=== PATIENT | female | born 1980 | race Caucasian/White ===

== ENCOUNTER 2017-07-14 11:56 | Emergency (ER) | payer OTHER ==
[~2017-07-14] VITALS: Ht 162.6 cm; Wt 78.6 kg
[~2017-07-14 11:56] MED LIST: IBUP1CAP9 PO; MULT-513 PO; POTA20TA16 PO; PRM/3 PO
[2017-07-14 11:59] VITALS: TEMP 36.4; Ht 162.6 cm; Wt 78.6 kg
[2017-07-14 12:41] LABS: PREG INTERNAL NEGATIVE QC NEG CLEAR BACKGROUND; PREG INTERNAL POSITIVE QC POS CONTROL LINE
[2017-07-14 12:42] LABS: URINE APPEARANCE CLEAR (CLEAR); URINE BILIRUBIN NEG (NEG); URINE COLOR YELLOW; URINE EPITHELIAL CELL AUTO >30 /lpf (0-5); URINE NITRITE NEG (NEG); URINE PH 7.5 (4.5-7.5); URINE SPECIFIC GRAVITY 1.019 (1.000-1.030); UROBILINOGEN NEG (NEG); ZZUR CULT IF INDIC CLEAN CATCH NO
[2017-07-14 12:57] LABS: MANUAL MICROSCOPIC REQUIRED? NO; REVIEW REQ? NO
[2017-07-14 13:02] LABS: BASO % 0.4 %; BASO ABS # 0.02 K/uL (0-0.2); COMPLETE YES; EOS % 2.6 %; HEMATOCRIT 37.3 % (37-47); IG% 0.2 %; LYMPH % 47.9 %; LYMPH ABS # 2.57 K/uL (1.2-3.4); MEAN CORPUSCULAR HEMOGLOBIN 30.5 pg (25-34); MEAN CORPUSCULAR HGB CONC 34.3 g/dl (32-36); MEAN PLATELET VOLUME 11.8 fL (7.4-10.4); MONO % 5.6 %; NEUT % 43.3 %; PLATELET COUNT 196 K/uL (130-400); RED BLOOD COUNT 4.19 M/uL (4.2-5.4); WHITE BLOOD COUNT 5.37 K/uL (4.8-10.8)
[2017-07-14 13:10] LABS: BUN/CREATININE RATIO 8.8 (10-20); CALCIUM 8.6 mg/dl (8.5-10.1); CREATININE 0.73 mg/dl (0.60-1.20); POTASSIUM 3.8 mmol/L (3.5-5.1)
[2017-07-14 13:13] LABS: ALB/GLOB RATIO 1.1 (0.9-2)
[2017-07-14] MEDS ORDERED: MECLIZINE HCL 25 MG TAB PO STA (13:13)
[2017-07-14] MEDS ORDERED: SODIUM CHLORIDE 0.9% 1000ML 1,000 ML IV STA (13:13)
[2017-07-14] MEDS ORDERED: ONDANSETRON INJ 2 MG/ML 2 ML VIAL IV STA (13:13)
--- NOTE | 2017-07-14 13:19 | EMERGENCY ROOM VISIT NOTE ---
History First contact with patient: 12:58 Chief Complaint: DIZZY Stated Complaint: DIZZINESS Nursing Triage Summary: pt c/o dizziness since this AM. pt c/o intermittent nausea. pt states increased dizziness when changing positions. History of Present Illness The patient is a 36 year old female who presents to the Emergency Room with complaints of dizziness which began this morning. The patient states that she woke up at 3 AM with a feeling of dizziness. She describes the dizziness as a feeling of the room spinning. She reports symptoms have been constant since it started this morning. They're briskly when she closes her eyes. They worsen when she stands up and walks. She had a headache 2 weeks ago but states this resolved denies pain in her head at this time. She has been eating and drinking normally. She denies history of similar symptoms. She denies neck pain, recent illness, fevers/chills, chest pain, shortness of breath or palpitations. She states she is otherwise healthy. She takes Premarin due to a history of hysterectomy secondary to endometriosis. She denies numbness/ weakness, lightheadedness or syncope. Review of Systems A complete 10 point review of systems was reviewed with the patient with pertinent positives and negatives as per history of present illness. All else were negative. Past Medical/Surgical History Medical Problems: (1) Appendectomy (2) Costochondritis (3) Hysterectomy (4) Oophorectomy Family History Patient reports no known family medical history. Social History Smoking Status: Never Smoker Alcohol Use: occasionally Drug Use: none Marital Status: Occupation Status: employed Current/Historical Medications Scheduled Estrogens, Conjugated (Premarin), 0.3 MG PO HS Multivitamins/Minerals (Mvi With Minerals), 1 TAB PO DAILY Potassium Ext Rel (Klor-Con), 1 TAB PO DAILY Scheduled PRN Lorazepam (Ativan), 1-2 TAB PO TID PRN for Dizziness or Vertigo Allergies Coded Allergies: Adhesives (Verified Allergy, Mild, HIVES, 07/14/17) Physical Exam Vital Signs Date Time Temp Pulse Resp B/P (MAP) Pulse Ox O2 Delivery O2 Flow Rate FiO2 07/14/17 15:23 71 15 118/79 99 Room Air 07/14/17 15:00 76 14 110/83 99 Room Air 07/14/17 13:34 74 17 109/77 95 Room Air 07/14/17 12:30 80 07/14/17 12:25 84 12 119/88 98 Room Air 80 118/85 91 126/91 07/14/17 11:59 36.4 92 18 127/87 97 Room Air Pain Rating (0-10): 0 Physical Exam VITALS: Vitals are noted on the nurse's note and reviewed by myself. Vital signs stable. GENERAL: This is a 36-year-old female, in no acute distress, nondiaphoretic, well-developed well-nourished. HEAD: Normocephalic atraumatic. EARS: External auditory canals clear, tympanic membranes pearly cannon without erythema or effusion bilaterally. EYES: Pupils equal round and reactive to light and accommodation. Conjunctivae without injection, sclerae without icterus. Extraocular movements intact, with a few beats of lateral nystagmus. MOUTH: Mucous membranes moist. Tongue does not deviate. NECK: Supple without nuchal rigidity. No lymphadenopathy. No meningismus. HEART: Regular rate and rhythm without murmurs gallops or rubs. LUNGS: Clear to auscultation bilaterally without wheezes, rales or rhonchi. MUSCULOSKELETAL: Full range of motion throughout. Strength 5/5 throughout. NEURO: Patient was alert and oriented to person place and time. Normal sensation to light and sharp touch. Deep tendon reflexes 2+ throughout. Normal finger to nose testing. Normal rapid alternating movements. Negative Romberg and pronator drift. No focal neurological deficits. Medical Decision & Procedures ER Provider Diagnostic Interpretation: CT SCAN OF THE BRAIN WITHOUT IV CONTRAST FINDINGS: Brain parenchyma: The brain parenchyma is normal in appearance. There is no hemorrhage, mass effect, or evidence of acute territorial ischemia by CT criteria. Cannon-white matter is preserved. No extra-axial fluid collection is seen. Ventricles, sulci, cisterns: Normal in configuration. Intracranial vasculature: The visualized intracranial vasculature at the skull base is normal in appearance. Calvarium: Unremarkable. Sinuses and mastoids: The visualized paranasal sinuses are clear. The mastoid air cells are well pneumatized. Orbits: The bony orbits are grossly intact. IMPRESSION: No acute intracranial abnormality. Laboratory Results 07/14/17 12:35 Red Blood Count 4.19, Mean Corpuscular Volume 89.0, Mean Corpuscular Hemoglobin 30.5, Mean Corpuscular Hemoglobin Concent 34.3, Mean Platelet Volume 11.8, Neutrophils (%) (Auto) 43.3, Lymphocytes (%) (Auto) 47.9, Monocytes (%) (Auto) 5.6, Eosinophils (%) (Auto) 2.6, Basophils (%) (Auto) 0.4, Neutrophils # (Auto) 2.33, Lymphocytes # (Auto) 2.57, Monocytes # (Auto) 0.30, Eosinophils # (Auto) 0.14, Basophils # (Auto) 0.02 07/14/17 12:35 Test 07/14/17 12:26 07/14/17 12:35 Urine Color YELLOW Urine Appearance CLEAR (CLEAR) Urine pH 7.5 (4.5-7.5) Urine Specific [place] 1.019 (1.000-1.030) Urine Protein NEG (NEG) Urine Glucose (UA) NEG (NEG) Urine Ketones NEG (NEG) Urine Occult Blood NEG (NEG) Urine Nitrite NEG (NEG) Urine Bilirubin NEG (NEG) Urine Urobilinogen NEG (NEG) Urine Leukocyte Esterase NEG (NEG) Urine WBC (Auto) 1-5 /hpf (0-5) Urine RBC (Auto) 0-4 /hpf (0-4) Urine Hyaline Casts (Auto) 1-5 /lpf (0-5) Urine Epithelial Cells (Auto) >30 /lpf (0-5) Urine Bacteria (Auto) NEG (NEG) Urine Test NEG (NEG) White Blood Count 5.37 K/uL (4.8-10.8) Red Blood Count 4.19 M/uL (4.2-5.4) Hemoglobin 12.8 g/dL (12.0-16.0) Hematocrit 37.3 % (37-47) Mean Corpuscular Volume 89.0 fL (80-100) Mean Corpuscular Hemoglobin 30.5 pg (25-34) Mean Corpuscular Hemoglobin Concent 34.3 g/dl (32-36) Platelet Count 196 K/uL (130-400) Mean Platelet Volume 11.8 fL (7.4-10.4) Neutrophils (%) (Auto) 43.3 % Lymphocytes (%) (Auto) 47.9 % Monocytes (%) (Auto) 5.6 % Eosinophils (%) (Auto) 2.6 % Basophils (%) (Auto) 0.4 % Neutrophils # (Auto) 2.33 K/uL (1.4-6.5) Lymphocytes # (Auto) 2.57 K/uL (1.2-3.4) Monocytes # (Auto) 0.30 K/uL (0.11-0.59) Eosinophils # (Auto) 0.14 K/uL (0-0.5) Basophils # (Auto) 0.02 K/uL (0-0.2) RDW Standard Deviation 40.0 fL (36.4-46.3) RDW Coefficient of Variation 12.4 % (11.5-14.5) Immature Granulocyte % (Auto) 0.2 % Immature Granulocyte # (Auto) 0.01 K/uL (0.00-0.02) Anion Gap 5.0 mmol/L (3-11) Est Creatinine Clear Calc Drug Dose 108.1 ml/min Estimated GFR () 122.8 Estimated GFR (Non- 106.0 BUN/Creatinine Ratio 8.8 (10-20) Calcium Level 8.6 mg/dl (8.5-10.1) Magnesium Level 2.0 mg/dl (1.8-2.4) Total Bilirubin 0.4 mg/dl (0.2-1) Aspartate Amino Transf (AST/SGOT) 20 U/L (15-37) Alanine Aminotransferase (ALT/SGPT) 30 U/L (12-78) Alkaline Phosphatase 87 U/L (45-117) Total Protein 6.9 gm/dl (6.4-8.2) Albumin 3.6 gm/dl (3.4-5.0) Globulin 3.3 gm/dl (2.5-4.0) Albumin/Globulin Ratio 1.1 (0.9-2) Thyroid Stimulating Hormone (TSH) 1.060 uIu/ml (0.300-4.500) Medications Administered Medications (Trade) Dose Ordered Sig/Maria Guadalupe Route Start Time Stop Time Status Last Admin Dose Admin Sodium Chloride 1,000 ml @ 999 mls/hr Q1H1M STAT IV 07/14/17 13:13 07/14/17 14:13 DC 07/14/17 13:35 999 MLS/HR Ondansetron HCl (Zofran Inj) 4 mg NOW STAT IV 07/14/17 13:13 07/14/17 13:14 DC 07/14/17 13:35 4 MG Meclizine HCl (Antivert Tab) 25 mg NOW STAT PO 07/14/17 13:13 07/14/17 13:14 DC 07/14/17 13:35 25 MG Lorazepam (Ativan Tab) 1 mg NOW STAT SL 07/14/17 14:16 07/14/17 14:17 DC 07/14/17 14:58 1 MG ECG Rate (beats per minute): 79 Rhythm: normal sinus (sinus arrhythmia) Findings: no acute ischemic change, no ectopy Change: no significant change ED Course The patient was evaluated as above. Labs were drawn and IV access was obtained. Patient was medicated with meclizine and Zofran. CT of the head was performed and read by radiology as above. Patient was reevaluated and had no improvement. She was given 1 mg Ativan at this time. Patient was reevaluated and had complete resolution of symptoms. She is requesting discharge home. Discharge instructions were reviewed with the patient. The patient verbalized understanding of my assessment and treatment plan and was discharged home in good condition. Medical Decision Differential diagnosis includes CVA, TIA, infection, BPPV, labyrinthitis, malignancy, orthostatic hypotension, among others. The patient is a 36-year-old female who presents today complaining of dizziness. Labs revealed no leukocytosis, anemia or concerning electrolyte abnormalities. Urinalysis was not suggestive of infection. Urine was negative. EKG showed a normal sinus rhythm with sinus arrhythmia. CT of the head was unremarkable. The patient's neurological exam was normal. Cerebellar exam was normal. The patient had complete resolution of symptoms after receiving Ativan. She was given a small amount of this to be taken at home if the symptoms return. Otherwise, she will follow-up with her primary care provider for further evaluation. Based on the patient's presentation and work up, I feel the patient is stable for outpatient treatment. The patient was educated to return to the emergency department for any worsening of their current condition or new/concerning symptoms. She will follow up with her PCP. The patient's case was reviewed with Dr. Payton, ED attending physician, who agreed with my assessment and treatment plan. Medication reconciliation: I attest that I have personally reviewed the patient 's current medication list. Blood pressure screening: Patient was found to have normal blood pressure on screening and does not require follow-up. Impression Primary Impression: Vertigo Departure Information Dispostion Home / Self-Care Condition GOOD Prescriptions Lorazepam (ATIVAN) 0.5 Mg Tab 1-2 TAB PO TID Y for Dizziness or Vertigo, #9 TAB Prov: Doris Saenz .BUBBA 07/14/17 Referrals Mckenzie Alaniz M.D. (PCP) Patient Instructions My [facility] [place] [facility] Additional Instructions Take the Ativan 1-2 tablets up to 3 times daily as needed for dizziness. Rest and stay well hydrated. No strenuous activity for at least 48 hours. Follow-up with her primary care provider within 2-3 days for further evaluation. Return to the emergency room with intractable dizziness, vomiting, severe headaches or any other new/concerning symptoms.
[2017-07-14 13:52] LABS: THYROID STIMULATING HORMONE 1.06 uIu/ml (0.300-4.500)
--- NOTE | 2017-07-14 14:04 | DIAGNOSTIC IMAGING REPORT ---
CT SCAN OF THE BRAIN WITHOUT IV CONTRAST CLINICAL HISTORY: Dizziness. COMPARISON STUDY: CT of the brain dated 09/27/2016. TECHNIQUE: Unenhanced axial CT scan of the brain is performed from the vertex to the skull base. Automated dose control exposure was utilized. A dose lowering technique was utilized adhering to the principles of ALARA. CT DOSE: 690.05 mGycm FINDINGS: Brain parenchyma: The brain parenchyma is normal in appearance. There is no hemorrhage, mass effect, or evidence of acute territorial ischemia by CT criteria. Cannon-white matter is preserved. No extra-axial fluid collection is seen. Ventricles, sulci, cisterns: Normal in configuration. Intracranial vasculature: The visualized intracranial vasculature at the skull base is normal in appearance. Calvarium: Unremarkable. Sinuses and mastoids: The visualized paranasal sinuses are clear. The mastoid air cells are well pneumatized. Orbits: The bony orbits are grossly intact. IMPRESSION: No acute intracranial abnormality. Electronically signed by: Angel Smith M.D. 07/14/2017 2:03 PM Dictated Date/Time: 07/14/2017 2:01 PM
[2017-07-14] MEDS ORDERED: LORAZEPAM 1 MG TAB SL STA (14:16)
[2017-07-14 15:23] VITALS: BP 118/79; PULSE 71; O2SAT 99
[2017-07-14] MEDS ORDERED: LORA-741 PO (15:47)
== END 2017-07-14 15:51 | disposition home or self-care (01) ==
LOC: C.EDB 11:56 → C.EDC 15:51
DX: R42 Dizziness and giddiness (principal)

== ENCOUNTER 2017-10-24 05:22 | Day surgery (SDC) | payer OTHER ==
[2017-10-07 13:46] VITALS: BMI 29.0
--- NOTE | 2017-10-07 14:18 | PAT Medication Instructions ---
Service Date Oct 07, 2017. Current Home Medication List Estrogens, Conjugated (Premarin), 1.25 MG PO QAM Multivitamins/Minerals (Mvi With Minerals), 1 TAB PO QAM Ondansetron Hcl (Zofran), 4 MG PO UD PRN for Nausea Rizatriptan Benzoate (Maxalt), 10 MG PO UD PRN for Migraine Medication Instructions For Your Scheduled Surgery - Hold the following medications the morning of surgery: Multivitamins/Minerals (Mvi With Minerals), 1 TAB PO QAM - Take the following medications the morning of surgery with a sip of water OTHERWISE NOTHING TO EAT OR DRINK AFTER MIDNIGHT: Estrogens, Conjugated (Premarin), 1.25 MG PO QAM Ondansetron Hcl (Zofran), 4 MG PO UD PRN for Nausea Rizatriptan Benzoate (Maxalt), 10 MG PO UD PRN for Migraine If you have any questions please call us at [phone] or [phone] or [phone]
[2017-10-07 14:29] LABS: BASO % 0.3 %; BASO ABS # 0.02 K/uL (0-0.2); COMPLETE YES; EOS % 2.4 %; HEMATOCRIT 34.4 % (37-47); IG% 0.2 %; LYMPH % 35.3 %; LYMPH ABS # 2.34 K/uL (1.2-3.4); MEAN CELL VOLUME 90.5 fL (80-100); MEAN CORPUSCULAR HEMOGLOBIN 30.3 pg (25-34); MEAN CORPUSCULAR HGB CONC 33.4 g/dl (32-36); MEAN PLATELET VOLUME 11.4 fL (7.4-10.4); MONO % 6.9 %; NEUT % 54.9 %; PLATELET COUNT 236 K/uL (130-400); WHITE BLOOD COUNT 6.63 K/uL (4.8-10.8)
[~2017-10-24] VITALS: Ht 162.6 cm; Wt 77.0 kg
[~2017-10-24 05:22] MED LIST changes: +ESTR1.252 PO; -IBUP1CAP9 PO; +ONDA4TAB46 PO; -POTA20TA16 PO; -PRM/3 PO; +RIZA10TA18 PO
[2017-10-24 05:51] LABS: BASO % 0.5 %; BASO ABS # 0.03 K/uL (0-0.2); EOS % 3.4 %; HEMATOCRIT 37.4 % (37-47); LYMPH % 41.5 %; LYMPH ABS # 2.33 K/uL (1.2-3.4); MEAN CELL VOLUME 91.9 fL (80-100); MEAN CORPUSCULAR HEMOGLOBIN 31.2 pg (25-34); MEAN PLATELET VOLUME 11.5 fL (7.4-10.4); NEUT % 46.6 %; PLATELET COUNT 212 K/uL (130-400); RED BLOOD COUNT 4.07 M/uL (4.2-5.4); WHITE BLOOD COUNT 5.62 K/uL (4.8-10.8)
[2017-10-24] MEDS ORDERED: LACTATED RINGER'S 1000ML 1,000 ML IV SCH ×2 (06:00)
[2017-10-24] MEDS ORDERED: SCOPOLAMINE 1.5 MG TDSY TD SCH (06:00)
[2017-10-24] MEDS ORDERED: CEFAZOLIN 2000MG IV PUSH 10 ML IV SCH (06:00)
[2017-10-24 06:03] VITALS: BP 115/73; PULSE 87; TEMP 36.5; O2SAT 98; Ht 162.6 cm; Wt 77.0 kg
[2017-10-24 06:06] LABS: COMPLETE YES
[2017-10-24] MEDS ORDERED: MIDAZOLAM HCL 1 MG/ML 2ML VIAL ONE (06:35)
[2017-10-24] MEDS ORDERED: FENTANYL CITRATE INJ 50 MCG/1 ML 2 ML VIAL ONE (06:35)
--- NOTE | 2017-10-24 06:43 | History & Physical Bridge Note ---
H&P Re-Evaluation Bridge Note: I have examined the patient, reviewed the History & Physical and in the interval since the performance of the History & Physical I have noted the following changes of clinical significance: No changes noted
[2017-10-24] MEDS ORDERED: BUPIVACAINE 0.5 % 5 MG/1 ML MPF 30ML VIAL ONE (06:49)
[2017-10-24] MEDS ORDERED: HYDROmorphone INJ 2 MG/ML SYR/VIAL ONE (07:35)
[2017-10-24] MEDS ORDERED: SUCCINYLCHOLINE 100MG/5ML SYR IV ONE (07:57)
[2017-10-24] MEDS ORDERED: PROPOFOL IV EMULSION 10 MG/ML 20 ML VIAL IV ONE (07:57)
[2017-10-24] MEDS ORDERED: ONDANSETRON INJ 2 MG/ML 2 ML VIAL ONE ×2 (07:57)
[2017-10-24] MEDS ORDERED: LIDOCAINE HCL 2% 2 ML VIAL (20MG/ML) ONE (07:57)
[2017-10-24] MEDS ORDERED: DEXAMETHASONE SOD INJ 4 MG/ML VIAL ONE (07:57)
[2017-10-24] MEDS ORDERED: OXIDIZED CELLULOSE 1 EA TOP ONE ×2 (07:58→08:02)
[2017-10-24] MEDS ORDERED: GLYCOPYRROLATE INJ 0.2 MG/ML VIAL ONE (08:13)
[2017-10-24] MEDS ORDERED: ROCURONIUM BROMIDE 10 MG/ML 5 ML VIAL IV ONE (08:13)
[2017-10-24] MEDS ORDERED: NEOSTIGMINE METHYLSULFATE 5 MG/5 ML SYR ONE (08:13)
[2017-10-24] MEDS ORDERED: SODIUM CHLORIDE 0.9% 1000ML 1,000 ML IV SCH (08:26)
[2017-10-24] MEDS ORDERED: IBUPROFEN 600 MG TAB PO PRN (08:30)
[2017-10-24] MEDS ORDERED: OXYCODONE/ACETAMINOPHEN 5-325 TAB PO PRN ×2 (08:30)
[2017-10-24] MEDS ORDERED: ONDANSETRON INJ 2 MG/ML 2 ML VIAL IV PRN ×2 (08:30→08:45)
--- NOTE | 2017-10-24 08:31 | [facility] Post Operative Brief Note ---
Immediate Operative Summary Operative Date Oct 24, 2017. Pre-Operative Diagnosis History of Endometresois; history of total hysterectomy with bilateral salpingo-oopherectomy; chronic pelvic pain Post-Operative Diagnosis History of Endometresois; history of total hysterectomy with bilateral salpingo-oopherectomy; chronic pelvic pain, bowel adhesions Procedure(s) Performed Laparoscopy, Lysis of Adhesions, with Peritoneal Biopsy Surgeon Dr. Lashonda العلي Hotel Reservation Agent Surgeon(s) Dr. Charlotte Avalos Estimated Blood Loss 5mL Findings Upon laparoscopic exam the descending and sigmoid colon were adhered to the ipsilateral side wall which were carefully cauterized and lysed. The ascending colon was also lightly adhered to the right side pelvic wall which were also carefully cauterized and lysed. The sites of adhesiolysis were covered with interceed to prevent adhesion reformation. There was white thickening along the right pelvic side wall which could not be determined if it was scar tissue or ovarian remnant tissue therefore a piece of the peritoneum was removed and sent to pathology. Excellent hemostasis was noted at the completion of the procedure. The patient tolerated the surgery well and was sent to recovery with stable vital signs. Fluids (cc crystalloids) 1100 Specimens A: Piece of [place] Drains Luna to [place]otte Anesthesia General Complication(s) None Disposition Recovery Room / PACU
[2017-10-24] MEDS ORDERED: OXYC-57 PO (08:32)
--- NOTE | 2017-10-24 08:34 | Discharge Instructions ---
Discharge Instructions Date of Service Oct 24, 2017. Visit Reason for Visit: Chronic Pelvic Pain, Hx Fernando W/Bso, Endometriosis, Discharge Discharge Diagnosis / Problem: Laparoscopy with lysis of adhesions Discharge Goals Goal(s): Decrease discomfort Activity Recommendations Activity Limitations: per Instructions/Follow-up section Anesthesia . Post Anesthesia Instructions: If you have had General Anesthesia or IV Sedation: * Do not drive today. * Resume driving when surgeon permits. * Do not make important decisions or sign legal documents today. * Call surgeon for: 1. Temperature elevations greater than 101 degrees F. 2. Uncontrollable pain. 3. Excessive bleeding. 4. Persistent nausea and vomiting. 5. Medication intolerance (nausea, vomiting or rash). * For nausea and vomiting use only clear liquids such as: tea, soda, bouillon until nausea subsides, then gradually increase diet as tolerated. * If you have any concerns or questions, call your surgeon's office. If physician is unavailable and it is an emergency, call 911 or go to the nearest emergency room. . Instructions / Follow-Up Instructions / Follow-Up ACTIVITY RECOMMENDATIONS: * Rest the first 2-3 days. You should be back to your normal activity levels by day 3. * No heavy lifting for 2 weeks. * You may shower the next day. * Do not drive anytime that you are taking narcotic pain medicines. RETURN TO SCHOOL/WORK: * May return to school or work after 2-3 days. DIET: Nausea may occur in the immediate post-operative period. If so, take clear liquids such as tea, bouillon, apple juice until all nausea has subsided, then resume usual diet. MEDICATIONS: Resume previous medications unless instructed otherwise by your surgeon. Ibuprofen 200mg 2-3 tablets every 4-6 hours as needed -- OR -- Aleve 2 tablets every 8-12 hours as needed for post-operative discomfort Medications are over the counter. Tylenol may be used if above medications are contraindicated or not preferred. Medication should be taken with food or milk. Do not take on an empty stomach. SPECIAL CARE INSTRUCTIONS: * Check temperature twice daily for one week. report any elevation over 101 degrees. * Post-operative discomfort may consist of a sore throat, a "bloated" feeling and pain in the shoulders. these are normal symptoms, which usually only last for 2-3 days. * Remove band-aids tomorrow and shower. There is no need to replace band-aids unless there is drainage or discomfort. FOLLOW UP VISIT: Call your doctor's office for a post-operative 2 week visit if not already scheduled. Diet Recommendations Recommended Home Diet: no limitations, resume previous diet Procedures Procedures Performed: Laparoscopy, Lysis of Adhesions, with Peritoneal Biopsy Pending Studies Studies pending at discharge: no Medical Emergencies . Who to Call and When: Medical Emergencies: If at any time you feel your situation is an emergency, please call 911 immediately. . Non-Emergent Contact Non-Emergency issues call your: Primary Care Provider, Engraver Block . . "Provider Documentation" section prepared by Ismael العلي. . [place] Drug Monitoring Program Search Results: patient reviewed within database
[2017-10-24] MEDS ORDERED: EpHEDrine SULFATE INJ 50 MG/ML AMP IV PRN (08:45)
[2017-10-24] MEDS ORDERED: PROMETHAZINE HCL INJ 12.5 MG in SODIUM CHLORIDE 0.9% 50ML 50 ML IV PRN (08:45)
[2017-10-24] MEDS ORDERED: FENTANYL CITRATE INJ 50 MCG/1 ML 2 ML VIAL IV PRN (08:45)
[2017-10-24] MEDS ORDERED: ATROPINE SULFATE 0.1 MG/ML 5ML SYR IV PRN (08:45)
[2017-10-24] MEDS ORDERED: METOCLOPRAMIDE HCL INJ 5 MG/ML 2 ML VIAL IV PRN (08:45)
[2017-10-24] MEDS ORDERED: HYDROmorphone INJ 1 MG/ML SYR IV PRN (08:45)
--- NOTE | 2017-10-24 09:07 | Anesthesiology Progress Note ---
Anesthesia Post Op Note Date & Time Oct 24, 2017 at 09:07 Vital Signs Pain Intensity: 0 Vital Signs Past 12 Hours Date Time Temp Pulse Resp B/P (MAP) Pulse Ox O2 Delivery O2 Flow Rate FiO2 10/24/17 09:00 89 16 114/79 99 Room Air 10/24/17 08:50 82 16 128/76 100 Oxymask 10 10/24/17 08:40 90 16 122/72 100 Oxymask 10 10/24/17 08:33 36.6 105 16 116/74 99 Oxymask 10 10/24/17 06:03 36.5 87 18 115/73 (87) 98 Room Air Notes Mental Status: alert / awake / arousable, participated in evaluation Pt Amnestic to Procedure: Yes Nausea / Vomiting: adequately controlled Pain: adequately controlled Airway Patency, RR, SpO2: stable & adequate BP & HR: stable & adequate Hydration State: stable & adequate Anesthetic Complications: no major complications apparent
--- NOTE | 2017-10-24 09:13 | OPERATIVE REPORT ---
DATE OF OPERATION: 10/24/2017 PREOPERATIVE DIAGNOSES: 1. History of endometriosis. 2. History of total hysterectomy with bilateral salpingo-oophorectomy. 3. Chronic pelvic pain. POSTOPERATIVE DIAGNOSES: 1. History of endometriosis. 2. History of total hysterectomy with bilateral salpingo-oophorectomy. 3. Chronic pelvic pain. 4. Bowel adhesions. OPERATIVE PROCEDURE: Laparoscopy with lysis of adhesions and peritoneal biopsy. SURGEON: Dr. العلي. NON DESTRUCTIVE EVALUATION MANAGER: Dr. Avalos. ANESTHESIA: General. ESTIMATED BLOOD LOSS: 5 mL. IV FLUIDS: 1100 mL crystalloids. URINE OUTPUT: 75 mL clear yellow urine. SPECIMENS: Peritoneal biopsy. DRAINS: Luna to gravity. COMPLICATIONS: None. DISPOSITION: To recovery room. OPERATION AND FINDINGS: OPERATIVE FINDINGS: Upon laparoscopic exam, the descending and sigmoid colon were adhered to the ipsilateral side wall which were carefully cauterized and lysed. The bowel was placed back within its normal anatomic position. There were also adhesions attaching the ascending colon to the right side pelvic wall. The adhesions were carefully cauterized and lysed as well. The sites of adhesiolysis were covered with Interceed to prevent any adhesion reformation. There was a patch of white thickening along the right pelvic side wall which could not be determined if it was scar tissue or remnant ovarian tissue, therefore a piece of peritoneum was removed and sent to pathology. There was significant scar tissue within the pelvis but freed from any adhesions. Excellent hemostasis was noted at the completion of the procedure. The patient tolerated the surgery well and was sent to recovery with stable vital signs. OPERATIVE PROCEDURE IN DETAIL: The patient taken to the operating room where she was placed in dorsal supine position. General anesthesia was administered. Once anesthesia was found to be adequate, the patient was prepped and draped in a manner appropriate for the procedure. Attention was directed towards the abdomen where a 10 mm skin incision was made below the umbilicus in a horizontal fashion. After it was injected with 0.5% Marcaine a Veress needle was then placed within the abdomen. Normal saline was injected and no fecal content aspirated. Pneumoperitoneum was then created. The Veress needle was then removed and an 11 mm trocar was placed within the abdomen under direct laparoscopic visualization. The patient was then placed in steep Trendelenburg position. A second 5 mm skin incision was made on the right side of the abdomen and a 5 mm trocar was placed within the abdomen under direct laparoscopic visualization. Attention was directed towards the sigmoid colon which was adhered to the left side pelvic wall. The adhesions were cauterized with monopolar attached to laparoscopic scissors. The peritoneal adhesions were lysed and the bowel was placed back within its normal anatomic position. Once the bowel was freed, attention was directed towards the ascending colon which was also adhered to the right side pelvic wall. These were carefully cauterized and lysed as well. There was thickening along the right side pelvic wall which could not be determined if it was ovarian remnant tissue or if it was just scar tissue and therefore the peritoneum was carefully stripped and sent to pathology. Interceed was then placed within the abdomen and placed over the sites of adhesiolysis to prevent any reformation of adhesions. A thorough examination of the abdomen and pelvis was then performed noting excellent hemostasis. No other adhesions were noted. It was determined that there was significant scar tissue within the pelvis but no other adhesions. At this point, the procedure was found to be complete. All instruments were removed from the abdomen and as much CO2 gas was allowed to percolate through open cannulas. The cannulas were then removed. The fascia of the umbilical incision was reapproximated with 0 Vicryl suture in a [id number] interrupted fashion. Both skin incisions were then closed with 4-0 Monocryl in a subcuticular fashion. Excellent hemostasis was noted. All sponge and instrument counts were found to be correct x2. The patient tolerated the procedure well and was sent to recovery with stable vital signs. I attest to the content of the Intraoperative Record and any orders documented therein. Any exceptions are noted below. CHAN
[2017-10-24 09:20] VITALS: BP 123/72; PULSE 64; TEMP 36.4; O2SAT 99
[2017-10-24 09:50] VITALS: BP 109/78; PULSE 84; O2SAT 100
[2017-10-24 10:20] VITALS: BP 107/69; PULSE 69; TEMP 36.1; O2SAT 96
[2017-10-24] MEDS ORDERED: CHECK SCOPOLAMINE PATCH PLACEMENT SCH (16:00)
== END 2017-10-24 11:00 | disposition home or self-care (01) ==
LOC: C.ACU 05:22
PROVIDERS: ATTEND Obstetrics & Gynecology
DX: N73.6 Female pelvic peritoneal adhesions (postinfective) (principal); Z90.722 Acquired absence of ovaries, bilateral; Z90.79 Acquired absence of other genital organ(s); Z90.710 Acquired absence of both cervix and uterus; Z79.899 Other long term (current) drug therapy

== ENCOUNTER 2022-09-15 19:20 | Observation (INO) ==
[2022-09-15 19:46] LABS: Basophils # (auto) 0.03 K/uL (0-0.2); Basophils % (auto) 0.2 %; Eosinophils # (auto) 0.03 K/uL (0-0.50); Eosinophils % (auto) 0.2 %; Hematocrit (blood only) 38.7 % (34.1-44.9); Hemoglobin 13.4 g/dl (12.0-16.0); Immature Granulocytes # (auto) 0.03 K/uL (0.00-0.02); Immature Granulocytes % (auto) 0.2 %; Lymphocytes # (auto) 2.32 K/uL (1.2-3.4); Lymphocytes % (auto) 17.6 %; Mean Corpuscular Hemoglobin 31.2 pg (25.0-34.0); Mean Corpuscular Hgb Conc 34.6 g/dL (32.0-36.0); Mean Platelet Volume 11.8 fL (9.4-12.3); Monocytes # (auto) 0.64 K/uL (0.24-0.82); Monocytes % (auto) 4.9 %; Neutrophils # (auto) 10.14 K/uL (1.4-6.5); Neutrophils % (auto) 76.9 %; Platelet Count 272 K/uL (130-400); RDW Standard Deviation 39.5 fL (36.4-46.3); White Blood Count 13.19 K/ul (4.8-10.8)
--- NOTE | 2022-09-15 19:53 | Emergency Department Note ---
Impression & Plan Acute cholecystitis ED Provider Note NAME: MICHEL DONALD AGE: 41 SEX: F : 1980 ARRIVES VIA: Walk-In INFORMANT: Patient, ED PROVIDER(S): Otis Yang MD Chief Complaint: Nausea vomiting, abdominal pain HPI: Patient presents due to concern for epigastric abdominal pain that she states that moves to her back that began around midnight. It has been fairly constant the patient has had persistent nausea with associated vomiting. No blood in the vomit. Patient [place] any fevers chills chest pains or shortness of breath. The patient denies any lower abdominal pain. Patient denies any dysuria hematuria no vaginal bleeding or discharge. Patient did try some Tums as well as Gas-X but this did not improve her symptoms. Patient denies any alcohol or tobacco use. No falls or trauma. Patient states that she has had these symptoms before but they tend to resolve with a little bit of time. ROS: See HPI for pertinent positives and negatives. A total of 10 systems were reviewed and otherwise negative. Past medical history: See below Surgical history: See below Social history: See below Physical Exam: GENERAL: NAD, wearing a mask, non-toxic. EYE EXAM: Normal conjunctiva. PERRL, no anisocoria and EOM's grossly intact w/o pain. NECK: Supple, no nuchal rigidity, no adenopathy, non-tender. No signs of meningismus. FROM of the neck with good chin to chest and neck extension. No stridor. LUNGS: Clear to auscultation. Normal chest wall mechanics. HEART: Tachycardic and regular, no MRG. ABDOMEN: Abdomen soft, epigastric mid abdominal and right upper quadrant pain, negative obturators and psoas, normo-active bowel sounds, no masses, no rebound or guarding. BACK: No CVA TTP. SKIN: No rashes and no bruising. UPPER EXTREMITIES: Upper extremities are grossly normal. LOWER EXTREMITIES: Grossly normal, no edema. NEURO EXAM: A&O x3, cranial nerves II-XII grossly intact, normal speech, moves a ll 4 extremities. Differential diagnoses: Appendicitis, ovarian cyst, ovarian torsion, ectopic , TOA, PID, infections, diverticulitis, UTI, obstruction, mesenteric ischemia, aortic pathology, inflammatory bowel disease, renal colic, PUD, pancreatitis, biliary pathology, hernia, volvulus, constipation, as well as other pathologies. Course: Patient was seen and evaluated the bedside. Full history physical exam was performed. Imaging Studies: See Below Cardiac monitoring: An order was placed for continuous cardiac monitoring. The monitor shows a rate of 110 with tachycardic and regular rhythm. MDM: Patient was seen due to concern for abdominal pain nausea vomiting. Blood work is obtained along with a CT abdomen pelvis. The patient was given IV fluids antiemetics and IV morphine. Patient did have improvement in the patient's symptoms after receiving the medications. Symptoms not completely resolved or improved and more tolerable. Patient has a white count of 13 with a normal H&H and platelet count. The patient's kidney function grossly unremarkable. LFTs and lipase negative. Urinalysis does show ketones but no signs of obvious infection. Patient CT of the abdomen pelvis does show concern for possible cholecystitis. Given this I did speak with on-call general surgery team Dr. Corrales and EVE Henley. Patient was evaluated by Kashmir Woody PA-C and the patient was admitted by Dr. Corrales. Past Med/Surg History Medical History Migraine Surgical History H/O abdominal hysterectomy Hx of appendectomy Social History Smoking Status: Never smoker Second Hand Exposure: No; Do You Dip or Chew Tobacco: No; Hx Alcohol Use: No Hx Substance Use: No Preferred Language: Azeri Communication Ability: Effective Egg Grader Required: No Beliefs That Will Affect Care: None Current Living Situation: Spouse Current Living Situation Comment: 2 story home Other Information That Helps Us Care for You: No Feels Safe at Home: Yes Safety Concerns: Feels Safe At This Time Assistive Devices: None Allergies Allergies Allergy/AdvReac Type Severity Reaction Status Date / Time adhesive Allergy Mild HIVES Verified 10/24/17 05:44 No Known Drug Allergies Allergy Unknown NKDA Verified 10/24/17 05:44 Results & Data (ED) Vital Signs Vital Signs - 24 hr 09/15/22 19:21 09/15/22 21:00 Temperature 36.2 C L Temperature Source Temporal Artery Scan Pulse Rate 111 H Pulse Rate [Finger] 88 Respiratory Rate 18 16 Respiratory Effort / Characteristics Non-Labored Spontaneous Respiratory Depth Normal Blood Pressure 127/78 Blood Pressure [Right Arm] 124/85 Blood Pressure Mean 94 Blood Pressure Mean [Right Arm] 98 Blood Pressure Position Sitting Pulse Oximetry 96 98 Oxygen Delivery Method Room Air Room Air Sepsis Recent Fever Within 48 Hours No Sepsis New/Unexplained Change in Mental Status N/A Sepsis Action Taken by Nursing No Action Required Home Medications Current Medication List: was personally reviewed by me Laboratory Data Attestation: I reviewed the patient's lab results. Result diagrams: 09/15/22 19:29 09/15/22 19:29 Lab Results 09/15/22 09/15/22 09/15/22 Range/Units 19:29 19:29 20:00 WBC 13.19 H (4.8-10.8) K/ul RBC 4.30 (3.93-5.22) M/uL Hgb 13.4 (12.0-16.0) g/dl Hct 38.7 (34.1-44.9) % MCV 90.0 (80.0-100.0) fL MCH 31.2 (25.0-34.0) pg MCHC 34.6 (32.0-36.0) g/dL RDW Std Deviation 39.5 (36.4-46.3) fL RDW Coeff of Angela 12.0 (11.5-14.5) % Plt Count 272 (130-400) K/uL MPV 11.8 (9.4-12.3) fL Immature Gran % (Auto) 0.2 % Neut % (Auto) 76.9 % Lymph % (Auto) 17.6 % Rock % (Auto) 4.9 % Eos % (Auto) 0.2 % Baso % (Auto) 0.2 % Neut # (Auto) 10.14 H (1.4-6.5) K/uL Lymph # (Auto) 2.32 (1.2-3.4) K/uL Rock # (Auto) 0.64 (0.24-0.82) K/uL Eos # (Auto) 0.03 (0-0.50) K/uL Baso # (Auto) 0.03 (0-0.2) K/uL Immature Gran # (Auto) 0.03 H (0.00-0.02) K/uL Sodium 137 (136-145) mmol/L Potassium 3.7 (3.5-5.1) mmol/L Chloride 110 H (98-107) mmol/L Carbon Dioxide 20 L (21-32) mmol/L Anion Gap 7 (3-11) BUN 8 (6-23) mg/dl Creatinine 0.86 (0.6-1.2) mg/dl Est Cr Clr Drug Dosing 81.0 ml/min Est GFR ( Amer) 97.3 ml/min Est GFR (Non-Af Amer) 83.9 ml/min BUN/Creatinine Ratio 9.3 L (10-20) Glucose 144 H (70-99(Fasting)) mg/dl Calcium 8.8 (8.5-10.1) mg/dl Total Bilirubin 0.4 (0.2-1.0) mg/dl AST 11 L (13-39) U/L ALT 8 (7-52) U/L Alkaline Phosphatase 61 (34-104) U/L Total Protein 7.0 (6.0-8.3) gm/dl Albumin 4.1 (3.4-5.0) gm/dl Globulin 2.9 (2.5-4.0) gm/dl Albumin/Globulin Ratio 1.4 (0.9-2) Lipase 7 L (11-82) U/L Urine Color Yellow Urine Appearance Cloudy A (Clear) Urine pH 7.5 (4.5-7.5) Ur Specific [place] 1.021 (1.000-1.030) Urine Protein Trace H (Negative) Urine Glucose (UA) Negative (Negative) Urine Ketones Trace H (Negative) Urine Blood Negative (Negative) Urine Nitrite Negative (Negative) Urine Bilirubin Negative (Negative) Urine Urobilinogen Negative (Negative) Ur Leukocyte Esterase Negative (Negative) Urine WBC (Auto) 1-5 (0-5) /hpf Urine RBC (Auto) 0-4 (0-4) /hpf U Hyaline Cast (Auto) 1-5 (0-5) /lpf U Epithel Cells (Auto) >30 H (0-5) /lpf Urine Bacteria (Auto) Negative (Negative) SARS-CoV-2, RNA, NAAT (NEGATIVE) 09/15/22 Range/Units 22:08 WBC (4.8-10.8) K/ul RBC (3.93-5.22) M/uL Hgb (12.0-16.0) g/dl Hct (34.1-44.9) % MCV (80.0-100.0) fL MCH (25.0-34.0) pg MCHC (32.0-36.0) g/dL RDW Std Deviation (36.4-46.3) fL RDW Coeff of Angela (11.5-14.5) % Plt Count (130-400) K/uL MPV (9.4-12.3) fL Immature Gran % (Auto) % Neut % (Auto) % Lymph % (Auto) % Rock % (Auto) % Eos % (Auto) % Baso % (Auto) % Neut # (Auto) (1.4-6.5) K/uL Lymph # (Auto) (1.2-3.4) K/uL Rock # (Auto) (0.24-0.82) K/uL Eos # (Auto) (0-0.50) K/uL Baso # (Auto) (0-0.2) K/uL Immature Gran # (Auto) (0.00-0.02) K/uL Sodium (136-145) mmol/L Potassium (3.5-5.1) mmol/L Chloride (98-107) mmol/L Carbon Dioxide (21-32) mmol/L Anion Gap (3-11) BUN (6-23) mg/dl Creatinine (0.6-1.2) mg/dl Est Cr Clr Drug Dosing ml/min Est GFR ( Amer) ml/min Est GFR (Non-Af Amer) ml/min BUN/Creatinine Ratio (10-20) Glucose (70-99(Fasting)) mg/dl Calcium (8.5-10.1) mg/dl Total Bilirubin (0.2-1.0) mg/dl AST (13-39) U/L ALT (7-52) U/L Alkaline Phosphatase (34-104) U/L Total Protein (6.0-8.3) gm/dl Albumin (3.4-5.0) gm/dl Globulin (2.5-4.0) gm/dl Albumin/Globulin Ratio (0.9-2) Lipase (11-82) U/L Urine Color Urine Appearance (Clear) Urine pH (4.5-7.5) Ur Specific [place] (1.000-1.030) Urine Protein (Negative) Urine Glucose (UA) (Negative) Urine Ketones (Negative) Urine Blood (Negative) Urine Nitrite (Negative) Urine Bilirubin (Negative) Urine Urobilinogen (Negative) Ur Leukocyte Esterase (Negative) Urine WBC (Auto) (0-5) /hpf Urine RBC (Auto) (0-4) /hpf U Hyaline Cast (Auto) (0-5) /lpf U Epithel Cells (Auto) (0-5) /lpf Urine Bacteria (Auto) (Negative) SARS-CoV-2, RNA, NAAT NEGATIVE (NEGATIVE) Administered Medications Acetaminophen (Ofirmev) 1,000 mg in 100 mls @ 400 mls/hr IV Q8H PRN PRN Reason: pain Stop: 09/18/22 22:02 Last Infusion: 09/15/22 23:13 Dose: 0 mls/hr Documented By: Admin: 09/15/22 22:58 Dose: 400 mls/hr Documented By: CHITO Lactated Ringer's (Lr) 1,000 mls @ 100 mls/hr IV .Q10H KENZIE Stop: 10/15/22 22:14 Last Admin: 09/15/22 22:57 Dose: 100 mls/hr Documented By: CHITO Discontinued Medications Sodium Chloride (Nss 1000ml) 1,000 mls @ 999 mls/hr IV .Q1H1M ONE Stop: 09/15/22 21:19 Last Infusion: 09/15/22 21:36 Dose: 0 mls/hr Documented By: Admin: 09/15/22 20:34 Dose: 999 mls/hr Documented By: CHITO Cefoxitin Sodium (Mefoxin) 2,000 mg in 60 mls @ 100 mls/hr IV NOW STA Stop: 09/15/22 22:39 Last Infusion: 09/15/22 23:42 Dose: 0 mls/hr Documented By: Admin: 09/15/22 22:58 Dose: 100 mls/hr Documented By: CHITO Ioversol (Optiray 350 100ml) 87 ml IV ONCE ONE Stop: 09/15/22 20:47 Last Admin: 09/15/22 20:47 Dose: 87 ml Documented By: BRIANNA Morphine Sulfate (Morphine Sulfate 4 Mg/Ml 1 Ml Carp\Vial) 4 mg IV NOW STA Stop: 09/15/22 20:20 Last Admin: 09/15/22 20:34 Dose: 4 mg Documented By: CHITO Ondansetron HCl (Ondansetron Inj 2 Mg/Ml 2 Ml Vial) 4 mg IV NOW STA Stop: 09/15/22 20:20 Last Admin: 09/15/22 20:34 Dose: 4 mg Documented By: CHITO Discharge Plan Visit Data Chief Complaint: Abdominal Pain Stated Complaint: SHARP ABD AND BACK PAIN, VOMITTING ED Provider: Otis Yang Discharge Problem: Acute cholecystitis Patient Disposition: Admitted As Inpatient Discharge Instructions Interventions: ED Discharge Assessment Last Done: 09/15/22 23:25
[2022-09-15 20:08] LABS: Albumin Globulin Ratio 1.4 (0.9-2); Albumin Level 4.1 gm/dl (3.4-5.0); BUN Creatinine Ratio 9.3 (10-20); Bilirubin,Total 0.4 mg/dl (0.2-1.0); Calcium 8.8 mg/dl (8.5-10.1); Est GFR (African American) 97.3 ml/min; Est GFR (Non-African American) 83.9 ml/min; Globulin 2.9 gm/dl (2.5-4.0); Potassium 3.7 mmol/L (3.5-5.1)
[2022-09-15] MEDS ORDERED: MoRPHine SULFATE 4 MG/ML 1 ML CARP\\VIAL IV STA (20:19)
[2022-09-15] MEDS ORDERED: ONDANSETRON INJ 2 MG/ML 2 ML VIAL IV STA (20:19)
[2022-09-15] MEDS ORDERED: SODIUM CHLORIDE 0.9% 1000ML 1,000 ML IV ONE (20:19)
[2022-09-15 20:42] LABS: Appearance Urine Cloudy (Clear); Bacteria Urine Automated Negative (Negative); Bilirubin Urine Negative (Negative); Blood Urine Negative (Negative); Color Urine Yellow; Epithelial Cell Urine Auto >30 /lpf (0-5); Glucose Urine UA Negative (Negative); Ketones Urine Trace (Negative); Leukocyte Esterase Urine Negative (Negative); Nitrite Urine Negative (Negative); RBC Urine Automated 0-4 /hpf (0-4); Specific Gravity Urine 1.021 (1.000-1.030); Urobilinogen Urine Negative (Negative); pH Urine 7.5 (4.5-7.5)
[2022-09-15] MEDS ORDERED: OPTIRAY 350 100ml IV ONE (20:46)
[2022-09-15 20:51] LABS: Protein Urine Trace (Negative)
[2022-09-15] MEDS ORDERED: MoRPHine SULFATE 4 MG/ML 1 ML CARP\\VIAL IV PRN (22:03)
[2022-09-15] MEDS ORDERED: ONDANSETRON INJ 2 MG/ML 2 ML VIAL IV PRN (22:03)
[2022-09-15] MEDS ORDERED: ACETAMINOPHEN 1,000 MG/100 ML VIAL IV PRN (22:03)
[2022-09-15] MEDS ORDERED: cefOXitin 2,000 MG/60 ML BAG IV STA (22:04)
--- NOTE | 2022-09-15 22:06 | History & Physical Report ---
Date of Service September 15, 2022 Assessment & Plan (1) Acute cholecystitis: Plan: Due to the patient's clinical presentation as well as her laboratory findings and imaging we will proceed as follows: We admit the patient to the hospital Provide analgesics Provide antiemetics Implement n.p.o. status We will initiate antibiotics in the form of cefoxitin We will provide IV fluid for hydration It appears that the patient has acute cholecystitis on CAT scan. We will check a gallbladder ultrasound for better visualization of the gallbladder We will follow serial labs We have tentatively plan for cholecystectomy with Dr. Corrales on 09/16/2022. Additional recommendations be forthcoming based on operative findings and her postoperative course Will use SCDs for DVT prevention, no chemical means due to planned surgery She will be a level 1 full code History of Present Illness Chief Complaint: Abdominal pain Primary Care Provider: Chai Rod MD This is a 41-year-old female who presented to [facility] emergency department secondary to abdominal pain. The patient says that over the past several months she has had multiple episodes of epigastric and upper abdominal pain usually several hours after eating. She said that the pain would usually subside on its own so she never sought out medical attention for this problem. On 09/14/2022 at approximately midnight the patient developed similar type of epigastric and upper abdominal pain that woke her up from sleep. She said the pain radiated to her shoulder and she did not have any modifying factors. She did have associated nausea and vomiting. She denies any hematemesis. She is in addition she had some shakes and chills but no fevers. The pain did not subside so she just sought medical attention. The patient does report having prior abdominal surgeries in the form of 2 C-sections, a partial hysterectomy, and oophorectomy, and laparoscopy on 2 occasions secondary to endometriosis. In the emergency department the patient had labs and imaging which I independently reviewed. CBC revealed white blood cell count was 13.9. Hemoglobin, hematocrit, and platelet count were normal. Chemistry profile showed sodium, potassium, BUN, and creatinine were normal. There is no elevation of patient's bilirubin, transaminases, alkaline phosphatase, or lipase. Urinalysis was not indicative of infection. A CT scan abdomen pelvis showed the patient had some inflammatory stranding adjacent to the fundus of the gallbladder concerning for acute cholecystitis. At the time of my interview the patient was resting comfortably in bed and she was in no distress. Allergies Allergy/AdvReac Type Severity Reaction Status Date / Time adhesive Allergy Mild HIVES Verified 10/24/17 05:44 No Known Drug Allergies Allergy Unknown NKDA Verified 10/24/17 05:44 Past Med/Surg History Medical History Migraine Surgical History H/O abdominal hysterectomy Hx of appendectomy Social History Smoking Status: Never smoker Second Hand Exposure: No; Do You Dip or Chew Tobacco: No; Hx Alcohol Use: No Hx Substance Use: No Preferred Language: Macanese Communication Ability: Effective Change Management Lead Required: No Beliefs That Will Affect Care: None Current Living Situation: Spouse Current Living Situation Comment: 2 story home Other Information That Helps Us Care for You: No Feels Safe at Home: Yes Safety Concerns: Feels Safe At This Time Assistive Devices: None Review of Systems Constitutional: + chills; no fever Eyes: no eye pain Ear, Nose, Mouth, Throat: no ear pain Respiratory: no cough Cardiovascular: no chest pain Gastrointestinal: as per Subjective / HPI, + abdominal pain, + nausea and + vomiting Genitourinary: no dysuria Musculoskeletal: no back pain Integumentary: no rash Neurologic: no localized weakness Physical Exam Constitutional: WD/WN, vitals as above Eyes: + anicteric sclerae ENMT: Ears: no hearing impairment and no external ear abnormality Sublingual jaundice is absent Neck: trachea midline Respiratory: normal respiratory effort; no respiratory distress and no labored breathing Cardiovascular: Rate/Rhythm: regular rate and regular rhythm Vessels: dorsalis pedis pulses present Gastrointestinal (Abdomen): Abdomen is soft and nondistended. Patient had a well-healed Pfannenstiel incision. Patient also had 2 laparoscopic incisions that are well-healed. There is no rebound tenderness or guarding but patient had marked tenderness with palpation in the right upper quadrant as well as epig astric areas. Musculoskeletal: No calf tenderness Skin: no rashes Neurologic: moves all extremities Psychiatric: A+Ox3, euthymic affect Results & Data Results & Data ([facility]) Vital Signs (Past 12 Hours) Vital Signs Temp Pulse Pulse Resp BP BP Pulse Ox 09/15/22 21:00 88 16 124/85 98 09/15/22 19:21 36.2 C L 111 H 18 127/78 96 O2 Del Method 09/15/22 21:00 Room Air 09/15/22 19:21 Room Air Supervising Physician Co-Signing Physician Notes As per Kashmir Wooyd physician's May have had issues with gallbladder for some time not sure if certain things triggered it Her abdomen is soft she does have some right upper quadrant guarding We will plan for laparoscopic cholecystectomy intraoperative cholangiogram for tomorrow PG Care Time/CCT Total # of Minutes Spent Total Time Spent with Patient: Total time spent is greater than 50% in coordination of care (as documented) at patient's floor/unit and/or counseling patient: Coding Level of Care Code 63915 Initial Inpt Care Lvl 3 Diagnoses Acute cholecystitis K81.0
[2022-09-15] MEDS: LACTATED RINGER'S 1,000 ML IV SCH (22:57)
[2022-09-16] MEDS ORDERED: cefOXitin 2,000 MG in DEXTROSE 5% 50 ML IV SCH (06:00)
[2022-09-16 06:20] LABS: Basophils # (auto) 0.05 K/uL (0-0.2); Basophils % (auto) 0.7 %; Eosinophils # (auto) 0.11 K/uL (0-0.50); Eosinophils % (auto) 1.4 %; Hematocrit (blood only) 34.3 % (34.1-44.9); Hemoglobin 11.7 g/dl (12.0-16.0); Immature Granulocytes # (auto) 0.01 K/uL (0.00-0.02); Immature Granulocytes % (auto) 0.1 %; Lymphocytes # (auto) 2.67 K/uL (1.2-3.4); Lymphocytes % (auto) 35.2 %; Mean Corpuscular Hemoglobin 31.4 pg (25.0-34.0); Mean Corpuscular Hgb Conc 34.1 g/dL (32.0-36.0); Mean Platelet Volume 11.6 fL (9.4-12.3); Monocytes # (auto) 0.53 K/uL (0.24-0.82); Neutrophils # (auto) 4.22 K/uL (1.4-6.5); Neutrophils % (auto) 55.6 %; Platelet Count 196 K/uL (130-400); RDW Standard Deviation 41.1 fL (36.4-46.3); Red Blood Count 3.73 M/uL (3.93-5.22); White Blood Count 7.59 K/ul (4.8-10.8)
[2022-09-16 06:49] LABS: Albumin Globulin Ratio 1.5 (0.9-2); Albumin Level 3.4 gm/dl (3.4-5.0); BUN Creatinine Ratio 5.9 (10-20); Bilirubin,Total 0.5 mg/dl (0.2-1.0); Calcium 8.1 mg/dl (8.5-10.1); Creatinine Clr Calc Pharmacy 63.3 ml/min; Est GFR (African American) 80.1 ml/min; Est GFR (Non-African American) 69.1 ml/min; Globulin 2.3 gm/dl (2.5-4.0); Potassium 3.4 mmol/L (3.5-5.1); Total Protein 5.7 gm/dl (6.0-8.3)
--- NOTE | 2022-09-16 07:12 | Anesthesiology Consultation ---
Date of Service September 16, 2022 Assessment & Plan (1) Encounter for pre-operative examination: Chart Review Chart Review: clerk entry level initiated History Surgery Operation Date: 09/16/22 09:40 Proposed Procedures p Laparoscopic Cholecystectomy - Jones Corrales MD, FACS Height/Weight Height: 5 ft 4 in Weight: 62 kg Allergies Allergy/AdvReac Type Severity Reaction Status Date / Time adhesive Allergy Mild HIVES Verified 10/24/17 05:44 No Known Drug Allergies Allergy Unknown NKDA Verified 10/24/17 05:44 Medications Active Medications Generic Name Dose Route Start Last Admin Trade Name Freq PRN Reason Stop Dose Admin Acetaminophen 1,000 mg in 100 mls @ 400 mls/hr 09/15/22 22:03 09/15/22 23:13 Ofirmev IV 09/18/22 22:02 Infused Q8H PRN Infusion pain Lactated Ringer's 1,000 mls @ 100 mls/hr 09/15/22 22:15 09/15/22 22:57 Lr IV 10/15/22 22:14 100 mls/hr .Q10H KENZIE Administration Cefoxitin Sodium 2,000 mg/ 60 mls @ 100 mls/hr 09/16/22 06:00 09/16/22 05:54 Dextrose IV 09/26/22 05:59 Infused Q6H KENZIE Infusion Morphine Sulfate 3 mg 09/15/22 22:03 09/16/22 03:14 Morphine Sulfate 4 Mg/Ml 1 Ml Carp\Vial IV 09/29/22 22:02 3 mg Q3H PRN Administration Pain Past Medical History Medical History Migraine Past Surgical History Surgical History H/O abdominal hysterectomy Hx of appendectomy Social History Smoking Status: Never smoker Do You Dip or Chew Tobacco: No Hx Alcohol Use: No Hx Substance Use: No Physical Exam Vital Signs Last Vital Signs Temp 97.5 F L 09/16/22 03:01 Pulse 94 H 09/16/22 03:01 Resp 14 09/16/22 03:01 BP 94/64 L 09/16/22 03:01 Pulse Ox 98 09/16/22 03:01 O2 Del Method 09/16/22 03:01 Testing Laboratory Results 09/16/22 06:03 09/16/22 06:03 Urine Color Yellow 09/15/22 20:00 Urine Appearance Cloudy (Clear) A 09/15/22 20:00 Urine pH 7.5 (4.5-7.5) 09/15/22 20:00 Ur Specific [place] 1.021 (1.000-1.030) 09/15/22 20:00 Urine Protein Trace (Negative) H 09/15/22 20:00 Urine Glucose (UA) Negative (Negative) 09/15/22: Urine Ketones Trace (Negative) H 09/15/22 20:00 Urine Nitrite Negative (Negative) 09/15/22 20:00 Ur Leukocyte Esterase Negative (Negative) 09/15/22 20:00 Urine WBC (Auto) 1-5 /hpf (0-5) 09/15/22 20:00 Urine RBC (Auto) 0-4 /hpf (0-4) 09/15/22 20:00 U Hyaline Cast (Auto) 1-5 /lpf (0-5) 09/15/22 20:00 U Epithel Cells (Auto) >30 /lpf (0-5) H 09/15/22 20:00 Urine Bacteria (Auto) Negative (Negative) 09/15/22 20:00
--- NOTE | 2022-09-16 07:24 | History & Physical Bridge Note ---
Date of Service September 16, 2022 History & Physical Bridge Note I have examined the patient, reviewed the History & Physical and in the interval since the performance of the History & Physical I have noted the following changes of clinical significance: no changes noted Overall had a good night the pain control with analgesics right upper quadrant guarding unchanged from yesterday We will proceed with surgery today laparoscopic cholecystectomy intraoperative cholangiogram possible open permit signed all question answered
[2022-09-16] MEDS ORDERED: LIDOCAINE 2% MPF LOCAL 5 ML VIAL INFIL ONE (07:37)
[2022-09-16] MEDS ORDERED: PROPOFOL IV EMULSION 10 MG/ML 20 ML VIAL IV ONE (07:37)
[2022-09-16] MEDS ORDERED: ONDANSETRON INJ 2 MG/ML 2 ML VIAL ONE (07:37)
[2022-09-16] MEDS ORDERED: fentaNYL citrate 100 MCG/2 ML VIAL ONE (07:37)
[2022-09-16] MEDS ORDERED: DEXAMETHASONE SOD INJ 4 MG/ML VIAL ONE (07:37)
[2022-09-16] MEDS ORDERED: MIDAZOLAM HCL 1 MG/ML 2ML VIAL ONE (07:37)
[2022-09-16] MEDS ORDERED: ROCURONIUM BROMIDE 10 MG/ML 5 ML VIAL IV ONE (07:37)
--- NOTE | 2022-09-16 07:49 | Ultrasound Report ---
US gallbladder CLINICAL HISTORY: abdominal pain TECHNIQUE: Multiple real-time sonographic images of the right upper quadrant were obtained. Comparison: None available at the time of this dictation. FINDINGS: The liver is diffusely homogenous with normal contour and echogenicity. No focal mass lesions are see n. No intrahepatic ductal dilatation is seen. Linear hyperechoic foci with posterior shadowing ar e identified layering dependently within the gallbladder, which are consistent with gallstones. The g allbladder wall is not thickened. There is no pericholecystic fluid present. The wall is edematous me asuring 0.3 cm in diameter. A sonographic Ly's sign was not elicited by the private equity associate. The co mmon duct measures 0.4 cm in diameter at the level of the hepatic artery. The visualized portions of the pancreas appear normal. The right kidney shows normal echogenicity, cortical thickness and renal contour. The right kidney sh ows no evidence of hydronephrosis or mass. No ascites or free fluid is seen in Aburto's pouch. IMPRESSION: Cholelithiasis is seen with gallbladder wall thickening and negative Ly sign. Although exam is eq uivocal, clinical correlation and correlation with recent pain medication administration is recommend ed to exclude cholecystitis. ACT 112: Negative or not required by law. Electronically signed by: Dannie Arteaga M.D. 09/16/2022 7:47 AM
[2022-09-16] MEDS ORDERED: BUPIVACAINE 0.5 % 5 MG/1 ML MPF 30ML VIAL ONE (08:35)
--- NOTE | 2022-09-16 08:51 | CT Scan Report ---
ABDOMEN AND PELVIS CT WITH IV CONTRAST CT DOSE: 303.35 mGy.cm HISTORY: Acute right upper quadrant abdominal pain with nausea and vomiting n/v, epigastric/RUQ pain TECHNIQUE: Multiaxial CT images of the abdomen and pelvis were performed following the IV administrat ion of 87 cc of Optiray, A dose lowering technique was utilized adhering to the principles of ALARA. COMPARISON STUDY: Gallbladder ultrasound of same day FINDINGS: Pectus excavatum. Clear lung bases. No pneumatosis or pneumoperitoneum. Imaged inferior car diac chambers are unremarkable. The spleen, pancreas and adrenal glands are unremarkable. Cholelithia sis. Gallbladder wall thickening with trace pericholecystic stranding. No biliary ductal dilation abrahan ntified. Unremarkable liver. Patency of the hepatic and portal veins. Symmetric enhancement of the kidneys. 7 mm hypodense focus of the inferior pole right kidney suggesti ve of a probable cyst. Urinary bladder wall thickening with partial distention. No adnexal mass lesio n identified. Aorta and IVC are within normal limits. No lymphadenopathy identified. No bowel obstruction. Distal colon is predominantly decompressed. Appendectomy. Unremarkable soft tis sues. There is no acute fracture. IMPRESSION: 1. Cholelithiasis with mild gallbladder distention, equivocal wall thickening and trace pericholecyst ic fluid. Findings are suspicious for acute cholecystitis in the appropriate clinical setting. 2. No bowel obstruction or bowel wall thickening. 3. Appendectomy. ACT 112: Negative or not required by law. The above report was generated using voice recognition software. It may contain grammatical, syntax o r spelling errors. Electronically signed by: Brock Mcmahan M.D. 09/16/2022 8:49 AM
[2022-09-16] MEDS ORDERED: NEOSTIGMINE METHYLSULFATE 1 MG/ML 10ML VIAL ONE (09:28)
[2022-09-16] MEDS ORDERED: GLYCOPYRROLATE 0.2 MG/ML VIAL ONE (09:28)
[2022-09-16] MEDS ORDERED: KETOROLAC 30 MG/ML VIAL ONE (09:43)
[2022-09-16] MEDS ORDERED: OPTIRAY 300 IV PRN (09:56)
--- NOTE | 2022-09-16 10:02 | Post Operative Brief Note ---
PG Immediate Post Op with CF Date of Surgery September 16, 2022 Pre & Post Diagnosis Operation Date: 09/16/22 09:40 Pre-Op Diagnosis: Cholecystitis Post-Op Diagnosis: Cholecystitis I identified the patient and participated in the time-out.: Yes Procedure Operation Date: 09/16/22 09:40 Actual Procedures p Laparoscopic Cholecystectomy with Cholangiogram(Not Applicable) - Jones Corrales MD, FACS Surgeon Jones Corrales MD, FACS Lbd Teacher aristeo Cooper Estimated Blood Loss 5 Findings Consistent with Post-Op Diagnosis Specimens Specimen Description: A. gallbladder
[2022-09-16] MEDS ORDERED: DROPERIDOL 5 MG/2 ML VIAL IV STA (10:33)
--- NOTE | 2022-09-16 10:39 | Operative Report ---
PG Post Operative Report Pre & Post Diagnosis Operation Date: 09/16/22 09:40 Pre-Op Diagnosis: Cholecystitis Post-Op Diagnosis: Cholecystitis I identified the patient and participated in the time-out.: Yes Procedure Operation Date: 09/16/22 09:40 Actual Procedures p Laparoscopic Cholecystectomy with Cholangiogram(Not Applicable) - Jones Corrales MD, FACS The patient was brought into the operating theater general endotracheal anesthesia supine position abdomen prepped with Betadine solution properly draped systemic biotics on board timeout was had patient identified small incision was made linearly above the umbilical crater sufficient enough to accommodate a Veress needle followed by CO2 followed by 5 mm trocar point of entry inspected no injury identified on direct visualization we placed a 5 mm epigastric and 2 subcostal trochars with preemptive local analgesic and direct visualization identify the gallbladder which was tense edematous hard to grab therefore we drained the first and able to grasp it elevated the edema was quite significant the most of her dissection was done bluntly went down to near the triangle MAGDY which were easily found we went around the cystic duct first created a window 5 mm clip was placed at its takeoff a small opening cystic duct was made #4 urethral catheter transversing abdominal wall was positioned in the duct serial x-ray was taken no obstruction was seen free for the duodenum Cholangiocath was then removed the cystic duct was clipped twice away from the common bile duct that we could see the artery was similar identified doubly clipped proximally once distally and divided the gallbladder was removed in antegrade fashion mostly was stented by using the edema blunt dissection few bleeders in the gallbladder fossa were controlled gallbladder was placed in an Endopouch and taken out intact through the epigastric port subhepatic and suprahepatic area was checked hemostasis appear satisfactory we then placed the camera in the right upper quadrant trocar site to visualize the initial entry into the abdomen there were adhesions identified on direct visualization we able to elevate and remove individual trocar last umbilical trocar fascial stitch 0 Vicryl was used for the epigastric trocar and the other wounds were closed 4-0 Monocryl Steri-Strips applied procedure was tolerated well by the patient estimate blood loss 5 cc addendum Gertrudis Dickens physician title i instructional assistant was present throughout the procedure and helped with camera work and exposure and retraction Called patient's at [phone] left a generic message that everything was fine Surgeon Jones Corrales MD, FACS [employer] aristeo Cooper Estimated Blood Loss 5 Findings Consistent with Post-Op Diagnosis Acute cholecystitis cholelithiasis Specimens Gallbladder and stone Indications Acute cholecystitis Description of Procedure merda I attest to the content of the Intraoperative Record and any orders documented therein. Any exceptions are noted below.
--- NOTE | 2022-09-16 10:59 | Anesthesiology Progress Note ---
Date of Service September 16, 2022 Anesthesia Post Procedure Vital Signs Vital Signs: Temp Pulse Pulse Pulse Resp BP BP 09/16/22 10:55 36.5 C 82 16 105/66 09/16/22 10:45 81 15 105/60 09/16/22 10:35 93 H 15 111/66 09/16/22 10:25 94 H 20 110/68 09/16/22 10:17 36.0 C L 85 16 97/63 L 09/16/22 07:39 36.5 C 99 H 16 109/76 09/16/22 03:01 36.4 C L 94 H 14 94/64 L 09/15/22 23:45 09/15/22 23:45 36.6 C 94 H 16 130/85 09/15/22 23:00 78 16 125/83 09/15/22 21:00 88 16 124/85 09/15/22 19:21 36.2 C L 111 H 18 127/78 Pulse Ox O2 Del Method O2 Flow Rate 09/16/22 10:55 97 Room Air 09/16/22 10:45 99 Room Air 09/16/22 10:35 100 Oxymask 9 09/16/22 10:25 100 Oxymask 9 09/16/22 10:17 100 Oxymask 9 09/16/22 07:39 99 Room Air 09/16/22 03:01 98 Room Air 09/15/22 23:45 Room Air 09/15/22 23:45 98 Room Air 09/15/22 23:00 98 Room Air 09/15/22 21:00 98 Room Air 09/15/22 19:21 96 Room Air Pain Intensity Abdomen: Pain Intensity: 6 Transfer of Care Handoff Completed per policy Notes Mental Status: alert / awake / arousable and participated in evaluation Patient Amnestic to Procedure: Yes Nausea / Vomiting: adequately controlled Pain: adequately controlled Airway Patency, RR, SpO2: stable & adequate BP & HR: stable & adequate Hydration State: stable & adequate Anesthetic Complications: no major complications apparent and Pt Satisfied with anesthetic care
[2022-09-16] MEDS ORDERED: MoRPHine SULFATE 2 MG/ML CARP IV PRN (11:10)
[2022-09-16] MEDS ORDERED: oxyCODONE/ACETAMINOPHEN 5mg/325mg TAB PO PRN ×2 (11:10)
[2022-09-16] MEDS: LACTATED RINGER'S 1,000 ML IV SCH ×2 (11:16→14:30)
--- NOTE | 2022-09-16 12:20 | Fluoroscopy Report ---
[place] cholangiogram OR CLINICAL HISTORY: IOC TECHNIQUE: 3 views were obtained with the C-arm in the OR with the above procedure. Total fluoroscopy time was 2 seconds. Comparison: Comparison is made to CT abdomen pelvis 09/15/2022 FINDINGS/IMPRESSION: Intraoperative images were obtained of cholangiogram Please correlate with intraoperative fluoroscopy and operative report. ACT 112: Negative or not required by law. Electronically signed by: Dannie Arteaga M.D. 09/16/2022 12:18 PM
--- NOTE | 2022-09-20 14:05 | Discharge Summary ---
Date of Service September 16, 2022 Admission HPI Per Admitting Provider This is a 41-year-old female who presented to [facility] emergency department secondary to abdominal pain. The patient says that over the past several months she has had multiple episodes of epigastric and upper abdominal pain usually several hours after eating. She said that the pain would usually subside on its own so she never sought out medical attention for this problem. On 09/14/2022 at approximately midnight the patient developed similar type of epigastric and upper abdominal pain that woke her up from sleep. She said the pain radiated to her shoulder and she did not have any modifying factors. She did have associated nausea and vomiting. She denies any hematemesis. She is in addition she had some shakes and chills but no fevers. The pain did not subside so she just sought medical attention. The patient does report having prior abdominal surgeries in the form of 2 C-sections, a partial hysterectomy, and oophorectomy, and laparoscopy on 2 occasions secondary to endometriosis. In the emergency department the patient had labs and imaging which I independently reviewed. CBC revealed white blood cell count was 13.9. Hemoglobin, hematocrit, and platelet count were normal. Chemistry profile showed sodium, potassium, BUN, and creatinine were normal. There is no elevation of patient's bilirubin, transaminases, alkaline phosphatase, or lipase. Urinalysis was not indicative of infection. A CT scan abdomen pelvis showed the patient had some inflammatory stranding adjacent to the fundus of the gallbladder concerning for acute cholecystitis. At the time of my interview the patient was resting comfortably in bed and she was in no distress. Principal Diagnosis acute cholecystitis Discharge Exam awake/alert Gastrointestinal (Abdomen) Inspection/Auscultation: + abdominal surgical incision (c/d/i with steri strips) Discharge Data Allergies Allergy/AdvReac Type Severity Reaction Status Date / Time adhesive Allergy Mild HIVES Verified 10/24/17 05:44 No Known Drug Allergies Allergy Unknown NKDA Verified 10/24/17 05:44 Consultations 09/15/22 21:38 Consult General Surgery Routine 09/15/22 21:59 ED Decision to Admit Stat Procedures Performed Operation Date: 09/16/22 09:40 Actual Procedures p Laparoscopic Cholecystectomy with Cholangiogram(Not Applicable) - Jones Corrales MD, FACS Ordered Studies 09/15/22 20:19 CT abd pelvis IV con only Urgent 09/15/22 22:02 US gallbladder Urgent 09/16/22 [place] cholangiogram OR Routine Hospital Course (1) Acute cholecystitis: This is a 41yF who presented to the [facility] ED on 09/15/22 with complaints of abdominal pain. Workup in the ER with a CT a/p revealed findings concerning for acute cholecystitis. She was tender to palpation in the RUQ. WBC 13. The patient was kept NPO with IVF. She was booked for the OR on 09/16/[address] Corrales where she underwent a laparoscopic cholecystectomy with intraoperative cholangiogram. The patient tolerated the procedure well, see op note for full details. The patient recovered in the PACU and recovered in the med/surg unit. Diet was advanced as tolerated and pain controlled on prn medications. On POD#0 the patient was deemed stable for discharge to home. Instructions reviewed and plans in place for patient to follow up with us in clinic within 1 week. Total Time Total Time Spent Total Time Spent (In Minutes): 10 Discharge Plan Discharge Items Patient Disposition: Home - Self-Care Reason For Visit: CHOLECYSTITIS Discharge Diagnosis: laparoscopic cholecystectomy Activity: Per Instructions section Lifting: No more than 10 pounds Bathing Comment: may shower starting 09/17/22; no soaking in tubs/pools Exercise/Sports: Wait until after follow-up appointment Driving/Machine Use: no driving while taking narcotics for pain Non-emergency contact: Surgeon Call non-emergency contact if: you have any medication questions, your symptoms worsen, your pain is not controlled, your pain is concerning for you, you have a fever, your temperature is above 101.5, your wound has increased redness, your wound has increased drainage and your wound pain has increased Follow-up/Referrals: Jones Corrales MD, FACS [Surgeon] - (Please call to schedule follow up in clinic within 1 week) Diet: Regular Addtl Attending Provider Instructions: You have steri-strips over your incisions. You may shower with these on. They will tend to fall off on their own within 7-10 days Pending Studies at Discharge: Yes Studies:: surgical pathology Stand-Alone Forms: My AURS[facility], Opioid Pain Management, Smoking Cessation Medications and DC Order Prescriptions: New oxycodone-acetaminophen [Percocet] 5-325 mg tablet 1 - 2 tab PO .q4-6h PRN (Reason: pain, for initial therapy, max 6 tabs per day) Qty: 12 0RF Discharge Orders: Discharge Order (Routine); Ordered 09/16/22 Ordered By: Gertrudis Ny Admission Data Admit Date/Time: 09/15/22 22:10 Attending Provider: Jones Corrales Admit Provider: Jones Corrales Primary Care Provider: Chai Rod Other Providers: Jones Corrales Other Interventions: Discharge Summary Assessment (RN) Last Done: 09/16/22 16:25 Coding Level of Care Code D/C DAY MANAGEMENT <30 MINS Diagnoses Acute cholecystitis K81.0
== END 2022-09-16 16:55 | disposition home or self-care (01) ==
LOC: ED 19:20 → 3N 22:10 → INTOOBSV 22:10 → 3N 23:25
DX: K80.12 Calculus of gallbladder with acute and chronic cholecystitis without obstruction